=== PATIENT | male | born 1945 | race Two or more races ===

== ENCOUNTER 2018-09-29 15:58 | Emergency (ER) | payer MEDICARE, MEDICAID ==
[~2018-09-29] VITALS: Ht 177.8 cm; Wt 79.8 kg
[2018-09-29 15:58] VITALS: Ht 177.8 cm; Wt 79.8 kg
== END 2018-09-29 19:13 | disposition expired ==
LOC: ED 15:58
DX: I46.9 Cardiac arrest, cause unspecified (principal); I10 Essential (primary) hypertension; E11.9 Type 2 diabetes mellitus without complications
CPT/HCPCS: J0171